=== PATIENT | female | born 1995 | race Caucasian/White ===

== ENCOUNTER 2021-11-25 06:40 | Day surgery (SDC) | payer BC ==
[2021-11-25] MEDS ORDERED: Sodium Bicarbonate 8.4% 50 MEQ/50 ML Syringe IV ONE (06:41)
[2021-11-25] MEDS ORDERED: fentaNYL 100 MCG/2 ML SDV IV ONE (06:41)
[2021-11-25] MEDS ORDERED: Ondansetron 4 MG/2 ML SDV IVPUSH ONE (06:41)
[2021-11-25] MEDS ORDERED: Propofol 200 MG/20 ML SDV IV ONE (06:41)
[2021-11-25] MEDS ORDERED: Midazolam 1 MG/ML 2 ML SDV IV ONE (06:41)
[2021-11-25] MEDS ORDERED: Lidocaine 2% 5 ML SDV INJECT ONE (06:41)
[2021-11-25] MEDS ORDERED: Lactated Ringers 1,000 ML IV SCH (06:45)
[2021-11-25] MEDS ORDERED: Sodium Chloride 0.9% 10 ML Syringe FLUSH PRN (06:45)
[2021-11-25] MEDS ORDERED: Bupivacaine 0.5% 30 ML SDV INJECT ONE (07:54)
[2021-11-25] MEDS ORDERED: Lidocaine 1% with EPINEPHrine 1:100,000 20 ML MDV INJECT ONE (07:54)
[2021-11-25] MEDS ORDERED: Sodium Bicarbonate 8.4% 50 MEQ/50 ML Syringe ONE (07:54)
== END 2021-11-25 09:33 | disposition home or self-care (01) ==
LOC: FB.SDS 06:40
PROVIDERS: ATTEND Surgery
DX: D17.1 Benign lipomatous neoplasm of skin and subcutaneous tissue of trunk (principal); K21.9 Gastro-esophageal reflux disease without esophagitis; J45.909 Unspecified asthma, uncomplicated; F32.9 Major depressive disorder, single episode, unspecified; F41.1 Generalized anxiety disorder; Z79.899 Other long term (current) drug therapy; Z91.02 Food additives allergy status; Z91.048 Other nonmedicinal substance allergy status; Z90.49 Acquired absence of other specified parts of digestive tract; Z98.890 Other specified postprocedural states; Z20.822 Contact with and (suspected) exposure to COVID-19
CPT/HCPCS: 00300; 21932; 88304; J2250; J2405; J2704; J3010; J3490; J7120